=== PATIENT | male | born 1965 | race Caucasian/White ===

== ENCOUNTER → 2016-04-20 | Outpatient (CLI) | payer OTHER, SELFPAY ==
[~2016-04-20] MED LIST: GLUCOPHAGE1000 MG PO; GLUCOTROL 10 MG10 MG PO; LASIX20 MG PO; LYRICA50 MG PO; PERCOCET 10-321 EACH PO; PROZAC40 MG PO; VITAMIN C 500500 MG PO; VITAMIN D50000 UNIT PO; XARELTO10 MG PO
== END ==
LOC: ECHO 14:30
DX: I10 Essential (primary) hypertension (principal); R51 Headache
CPT/HCPCS: ECHO; 93306

== ENCOUNTER → 2016-04-24 | Outpatient (CLI) | payer OTHER ==
[2016-04-24 11:18] LABS: RED BLOOD COUNT 4.77 M/UL (4.20-5.50); WHITE BLOOD COUNT 12.7 K/UL (4.5-11.0)
[2016-04-24 11:30] LABS: BUN/CREATININE RATIO 28 (0-10)
== END ==
LOC: OPSV2 10:31
PROVIDERS: Orthopaedic Surgery
DX: Z01.812 Encounter for preprocedural laboratory examination (principal); Z01.810 Encounter for preprocedural cardiovascular examination; M17.12 Unilateral primary osteoarthritis, left knee; I10 Essential (primary) hypertension; E11.9 Type 2 diabetes mellitus without complications; Z91.040 Latex allergy status; Z79.84 Long term (current) use of oral hypoglycemic drugs
CPT/HCPCS: 36415; 80048; 81001; 85027; 87081; 93005

== ENCOUNTER 2016-05-05 08:40 | Inpatient (IN) | payer OTHER, SELFPAY ==
[~2016-05-05] VITALS: Ht 177.8 cm; Wt 136.1 kg
[2016-05-05] MEDS ORDERED: VITAMIN C 500500 MG PO (09:47)
[2016-05-05] MEDS ORDERED: VITAMIN D50000 UNIT PO (09:49)
[2016-05-05] MEDS ORDERED: GLUCOTROL 10 MG10 MG PO (09:50)
[2016-05-05] MEDS ORDERED: GLUCOPHAGE1000 MG PO (09:50)
[2016-05-05] MEDS ORDERED: LASIX20 MG PO (09:51)
[2016-05-05] MEDS ORDERED: PROZAC40 MG PO (09:53)
[2016-05-05] MEDS ORDERED: LYRICA50 MG PO (09:58)
[2016-05-06 05:30] LABS: HEMOGLOBIN 12.5 gm/dl (14.0-17.5); RED BLOOD COUNT 3.97 M/UL (4.20-5.50); WHITE BLOOD COUNT 13.6 K/UL (4.5-11.0)
[2016-05-06 05:45] LABS: BUN/CREATININE RATIO 20 (0-10)
[2016-05-07 06:13] LABS: HEMOGLOBIN 11.4 gm/dl (14.0-17.5); RED BLOOD COUNT 3.63 M/UL (4.20-5.50); WHITE BLOOD COUNT 10.7 K/UL (4.5-11.0)
[2016-05-07 06:40] LABS: BUN/CREATININE RATIO 15 (0-10)
[2016-05-07] MEDS ORDERED: PERCOCET 10-321 EACH PO (11:45)
[2016-05-07] MEDS ORDERED: XARELTO10 MG PO (11:45)
== END 2016-05-07 12:28 | disposition home health service (06) | DRG 470 ==
LOC: ZOBSOF 08:40 → M/S 17:37
PROVIDERS: ADMIT Orthopaedic Surgery
PROC: 0SRD0J9 Replacement of Left Knee Joint with Synthetic Substitute, Cemented, Open Approach (ICD-10-PCS; principal; 2016-05-05 11:15)
DX: M17.12 Unilateral primary osteoarthritis, left knee (principal); G47.33 Obstructive sleep apnea (adult) (pediatric); E11.40 Type 2 diabetes mellitus with diabetic neuropathy, unspecified; E78.5 Hyperlipidemia, unspecified; F32.9 Major depressive disorder, single episode, unspecified; Z96.651 Presence of right artificial knee joint; Z91.040 Latex allergy status; Z79.84 Long term (current) use of oral hypoglycemic drugs; Z79.899 Other long term (current) drug therapy; Z87.891 Personal history of nicotine dependence; I95.9 Hypotension, unspecified; M19.012 Primary osteoarthritis, left shoulder; E87.5 Hyperkalemia; E11.65 Type 2 diabetes mellitus with hyperglycemia; M21.062 Valgus deformity, not elsewhere classified, left knee
CPT/HCPCS: 36415; 73560; 80048; 82962; 83036; 83735; 85027; 86850; 86900; 86901; 93005; 97116; 97530; C1776; J0690; J2250; J2270; J2795; J3010; J3370; J7030; J7120

== ENCOUNTER 2020-03-08 17:31 | Inpatient (IN) | payer MEDICARE ==
[~2020-03-08] VITALS: Ht 180.3 cm; Wt 135.6 kg
[~2020-03-08 17:31] MED LIST changes: +CYMBALTA60 MG PO; +FLOVENT 44 MCG7.9 GM; +KENALOG CREAM 015 GM TOP; +LEVOCETIRIZINE D5 MG PO; +MULTIVITAMINS1 EAC1 PO; +OMEPRAZOLE40 MG PO; +PROZAC20 MG PO; +VICTOZA 1818 MG/3 ML SC; +VITAMIN B-1000 MCG/M SC; +VITAMIN D250000 UNIT PO
[2020-03-08 18:28] LABS: HEMOGLOBIN 17.1 gm/dl (14.0-17.5); RED BLOOD COUNT 5.68 M/UL (4.20-5.50); WHITE BLOOD COUNT 7.4 K/UL (4.5-11.0)
[2020-03-08 18:48] LABS: BUN/CREATININE RATIO 20 (0-10)
[2020-03-08] MEDS ORDERED: VENTOLIN HFA 66.7 GM INH (23:42)
[2020-03-08] MEDS ORDERED: ZINC50 M1 PO (23:42)
[2020-03-08] MEDS ORDERED: GLUCOTROL 10 MG10 MG PO (23:42)
[2020-03-08] MEDS ORDERED: VISTARIL 25 MG25 MG PO (23:43)
[2020-03-08] MEDS ORDERED: IBUPROFEN800 MG PO (23:43)
[2020-03-08] MEDS ORDERED: TRULICITY1.5 MG/0.5 SQ (23:44)
[2020-03-08] MEDS ORDERED: PRAVACHOL20 MG PO (23:44)
[2020-03-09 05:21] LABS: RED BLOOD COUNT 4.73 M/UL (4.20-5.50); WHITE BLOOD COUNT 5.5 K/UL (4.5-11.0)
[2020-03-09 05:22] LABS: HEMOGLOBIN 13.8 gm/dl (14.0-17.5)
[2020-03-09 05:36] LABS: BUN/CREATININE RATIO 30 (0-10)
[2020-03-12 02:41] LABS: HEMOGLOBIN 13.3 gm/dl (14.0-17.5); RED BLOOD COUNT 4.56 M/UL (4.20-5.50); WHITE BLOOD COUNT 4.8 K/UL (4.5-11.0)
[2020-03-12 03:07] LABS: BUN/CREATININE RATIO 43 (0-10)
[2020-03-13 05:25] LABS: RED BLOOD COUNT 4.4 M/UL (4.20-5.50); WHITE BLOOD COUNT 4.6 K/UL (4.5-11.0)
[2020-03-13 05:54] LABS: BUN/CREATININE RATIO 39 (0-10)
[2020-03-14 05:05] LABS: HEMOGLOBIN 12.6 gm/dl (14.0-17.5); RED BLOOD COUNT 4.26 M/UL (4.20-5.50); WHITE BLOOD COUNT 4.2 K/UL (4.5-11.0)
[2020-03-14 05:58] LABS: BUN/CREATININE RATIO 38 (0-10)
[2020-03-15 04:41] LABS: HEMOGLOBIN 12.4 gm/dl (14.0-17.5); RED BLOOD COUNT 4.26 M/UL (4.20-5.50); WHITE BLOOD COUNT 3.5 K/UL (4.5-11.0)
[2020-03-15 04:54] LABS: BUN/CREATININE RATIO 42 (0-10)
[2020-03-16 05:36] LABS: RED BLOOD COUNT 4.41 M/UL (4.20-5.50); WHITE BLOOD COUNT 3.9 K/UL (4.5-11.0)
[2020-03-16 05:52] LABS: BUN/CREATININE RATIO 47 (0-10)
[2020-03-17 05:56] LABS: HEMOGLOBIN 13.4 gm/dl (14.0-17.5); RED BLOOD COUNT 4.56 M/UL (4.20-5.50); WHITE BLOOD COUNT 3.7 K/UL (4.5-11.0)
[2020-03-17 06:24] LABS: BUN/CREATININE RATIO 46 (0-10)
[2020-03-18 05:57] LABS: HEMOGLOBIN 14.2 gm/dl (14.0-17.5); RED BLOOD COUNT 4.86 M/UL (4.20-5.50)
[2020-03-18 06:01] LABS: WHITE BLOOD COUNT 5.6 K/UL (4.5-11.0)
[2020-03-18 06:32] LABS: BUN/CREATININE RATIO 48 (0-10)
[2020-03-19 05:04] LABS: HEMOGLOBIN 13.8 gm/dl (14.0-17.5); RED BLOOD COUNT 4.68 M/UL (4.20-5.50)
[2020-03-19 05:05] LABS: WHITE BLOOD COUNT 7.2 K/UL (4.5-11.0)
[2020-03-19 05:31] LABS: BUN/CREATININE RATIO 55 (0-10)
[2020-03-20 04:59] LABS: HEMOGLOBIN 12.6 gm/dl (14.0-17.5); RED BLOOD COUNT 4.34 M/UL (4.20-5.50); WHITE BLOOD COUNT 7.8 K/UL (4.5-11.0)
[2020-03-20 05:43] LABS: BUN/CREATININE RATIO 53 (0-10)
[2020-03-21 05:52] LABS: HEMOGLOBIN 12.4 gm/dl (14.0-17.5); RED BLOOD COUNT 4.21 M/UL (4.20-5.50); WHITE BLOOD COUNT 6.6 K/UL (4.5-11.0)
[2020-03-21 06:11] LABS: BUN/CREATININE RATIO 50 (0-10)
[2020-03-22 05:10] LABS: HEMOGLOBIN 12.5 gm/dl (14.0-17.5); RED BLOOD COUNT 4.22 M/UL (4.20-5.50); WHITE BLOOD COUNT 5.8 K/UL (4.5-11.0)
[2020-03-22 05:42] LABS: BUN/CREATININE RATIO 55 (0-10)
[2020-03-23 04:56] LABS: RED BLOOD COUNT 4.37 M/UL (4.20-5.50)
[2020-03-23 04:59] LABS: WHITE BLOOD COUNT 10.7 K/UL (4.5-11.0)
[2020-03-23 05:21] LABS: BUN/CREATININE RATIO 53 (0-10)
[2020-03-24 04:49] LABS: HEMOGLOBIN 11.4 gm/dl (14.0-17.5)
[2020-03-24 04:51] LABS: RED BLOOD COUNT 3.84 M/UL (4.20-5.50)
[2020-03-24 05:04] LABS: BUN/CREATININE RATIO 70 (0-10)
[2020-03-25 03:51] LABS: RED BLOOD COUNT 4.06 M/UL (4.20-5.50); WHITE BLOOD COUNT 6.6 K/UL (4.5-11.0)
[2020-03-25 04:05] LABS: BUN/CREATININE RATIO 65 (0-10)
[2020-03-26 07:50] LABS: HEMOGLOBIN 13.1 gm/dl (14.0-17.5); RED BLOOD COUNT 4.57 M/UL (4.20-5.50); WHITE BLOOD COUNT 14.1 K/UL (4.5-11.0)
[2020-03-26 08:48] LABS: BUN/CREATININE RATIO 64 (0-10)
[2020-03-27 04:00] LABS: HEMOGLOBIN 12.5 gm/dl (14.0-17.5); RED BLOOD COUNT 4.25 M/UL (4.20-5.50)
[2020-03-27 04:17] LABS: WHITE BLOOD COUNT 8.9 K/UL (4.5-11.0)
[2020-03-27 04:23] LABS: BUN/CREATININE RATIO 98 (0-10)
[2020-03-28 05:00] LABS: HEMOGLOBIN 12.4 gm/dl (14.0-17.5); RED BLOOD COUNT 4.2 M/UL (4.20-5.50)
[2020-03-28 05:02] LABS: WHITE BLOOD COUNT 5.6 K/UL (4.5-11.0)
[2020-03-28 05:20] LABS: BUN/CREATININE RATIO 78 (0-10)
[2020-03-29 05:15] LABS: HEMOGLOBIN 12.6 gm/dl (14.0-17.5); RED BLOOD COUNT 4.27 M/UL (4.20-5.50); WHITE BLOOD COUNT 6.7 K/UL (4.5-11.0)
[2020-03-29 05:30] LABS: BUN/CREATININE RATIO 87 (0-10)
[2020-03-30 05:05] LABS: HEMOGLOBIN 11.1 gm/dl (14.0-17.5)
[2020-03-30 05:06] LABS: RED BLOOD COUNT 3.8 M/UL (4.20-5.50); WHITE BLOOD COUNT 4.1 K/UL (4.5-11.0)
[2020-03-30 05:51] LABS: BUN/CREATININE RATIO 65 (0-10)
[2020-03-31 05:29] LABS: HEMOGLOBIN 11.7 gm/dl (14.0-17.5); RED BLOOD COUNT 3.93 M/UL (4.20-5.50); WHITE BLOOD COUNT 4.8 K/UL (4.5-11.0)
[2020-03-31 05:47] LABS: BUN/CREATININE RATIO 70 (0-10)
--- NOTE | 2020-03-31 16:12 | NUR ---
DAUGHTERS HERE AT 1400, IN AGREEMENT WITH PLAN TO TERMINALLY EXTUBATE PT. AWAITING FAMILY'S READINESS TO PROCEED.
--- NOTE | 2020-03-31 17:43 | NUR ---
STATUS UPDATE, PT EYES OPEN, RESPONDS TO PAIN, DOES NOT FOLLOW COMMANDS. RESPIRATIONS SHALLOW BUT TACHYPNEIC. MILD DISTRESS. DAUGHTERS AT BEDSIDE.
== END 2020-04-01 18:00 | disposition expired | DRG 207 ==
LOC: ER1 17:31 → PROG CARE 20:45 → CDU 20:45 → 2 EAST 20:45 → PROG CARE 03-10 12:37 → 2 EAST 03-12 16:28
PROVIDERS: Family Medicine; Internal Medicine; Internal Medicine Pulmonary Disease; ADMIT Internal Medicine
PROC: 5A09457 Assistance with Respiratory Ventilation, 24-96 Consecutive Hours, Continuous Positive Airway Pressure (ICD-10-PCS; 2020-03-08)
PROC: XW033E5 Introduction of Remdesivir Anti-infective into Peripheral Vein, Percutaneous Approach, New Technology Group 5 (ICD-10-PCS; 2020-03-08)
PROC: XW13325 Transfusion of Convalescent Plasma (Nonautologous) into Peripheral Vein, Percutaneous Approach, New Technology Group 5 (ICD-10-PCS; 2020-03-08)
PROC: 8E0ZXY6 Isolation (ICD-10-PCS; 2020-03-09)
PROC: 02HV33Z Insertion of Infusion Device into Superior Vena Cava, Percutaneous Approach (ICD-10-PCS; principal; 2020-03-13)
PROC: 5A1955Z Respiratory Ventilation, Greater than 96 Consecutive Hours (ICD-10-PCS; 2020-03-13)
PROC: B548ZZA Ultrasonography of Superior Vena Cava, Guidance (ICD-10-PCS; 2020-03-13)
PROC: 0BC68ZZ Extirpation of Matter from Right Lower Lobe Bronchus, Via Natural or Artificial Opening Endoscopic (ICD-10-PCS; 2020-03-13)
PROC: 03HY32Z Insertion of Monitoring Device into Upper Artery, Percutaneous Approach (ICD-10-PCS; 2020-03-13)
PROC: 4A133B1 Monitoring of Arterial Pressure, Peripheral, Percutaneous Approach (ICD-10-PCS; 2020-03-13)
PROC: 4A133J1 Monitoring of Arterial Pulse, Peripheral, Percutaneous Approach (ICD-10-PCS; 2020-03-13)
PROC: 0DH67UZ Insertion of Feeding Device into Stomach, Via Natural or Artificial Opening (ICD-10-PCS; 2020-03-13)
PROC: 3E0G76Z Introduction of Nutritional Substance into Upper GI, Via Natural or Artificial Opening (ICD-10-PCS; 2020-03-13)
PROC: 0BH17EZ Insertion of Endotracheal Airway into Trachea, Via Natural or Artificial Opening (ICD-10-PCS; 2020-03-13)
DX: U07.1 COVID-19 (principal); J12.82 Pneumonia due to coronavirus disease 2019; J96.01 Acute respiratory failure with hypoxia; J80 Acute respiratory distress syndrome; R65.21 Severe sepsis with septic shock; A41.02 Sepsis due to Methicillin resistant Staphylococcus aureus; I47.1 Supraventricular tachycardia; Z68.41 Body mass index [BMI] 40.0-44.9, adult; E87.2 Acidosis; J98.11 Atelectasis; Z51.5 Encounter for palliative care; T38.0X5A Adverse effect of glucocorticoids and synthetic analogues, initial encounter; K13.21 Leukoplakia of oral mucosa, including tongue; Z66 Do not resuscitate; E11.65 Type 2 diabetes mellitus with hyperglycemia; J98.2 Interstitial emphysema; I10 Essential (primary) hypertension; D69.6 Thrombocytopenia, unspecified; E66.01 Morbid (severe) obesity due to excess calories; G62.9 Polyneuropathy, unspecified; F41.9 Anxiety disorder, unspecified; Z91.040 Latex allergy status; J30.9 Allergic rhinitis, unspecified; Z79.4 Long term (current) use of insulin; K21.9 Gastro-esophageal reflux disease without esophagitis; Z79.899 Other long term (current) drug therapy
CPT/HCPCS: 31500; 36415; 36600; 70450; 71045; 71046; 80048; 80053; 80202; 81001; 82550; 82553; 82728; 82803; 82962; 83036; 83605; 83615; 83735; 83880; 84100; 84132; 84484; 85025; 85027; 85379; 85384; 85610; 85730; 86140; 86900; 86901; 86927; 87040; 87070; 87077; 87081; 87086; 87186; 87205; 87449; 90471; 93005; 94002; 94003; 94640; 94660; 94760; 96365; 96366; 96367; 96368; 96372; 96375; 96376; 99285; C9113; J0330; J0360; J0456; J0461; J0696; J1100; J1120; J1205; J1650; J1940; J2020; J2060; J2185; J2250; J2270; J2543; J2704; J3370; J7030; J7050; J7070